=== PATIENT | male | born 1965 | race Caucasian/White ===

== ENCOUNTER 2021-06-27 10:23 | Inpatient (IN) | payer OTHER ==
[2021-06-27 10:56] VITALS: BMI 29.9
[2021-06-27] MEDS ORDERED: MENTHOL/PHENOL 1 EACH UD MM PRN (11:47)
[2021-06-27] MEDS ORDERED: MAGNESIUM CITRATE 300 ML BOTTLE PO PRN (11:47)
[2021-06-27] MEDS ORDERED: MAG HYDROX/AL HYDROX/SIMETH 30 ML UNIT-DOSE CUP PO PRN (11:47)
[2021-06-27] MEDS ORDERED: IBUPROFEN 400 MG TABLET (FP) PO PRN (11:47)
[2021-06-27] MEDS ORDERED: ONDANSETRON *ODT* 4 MG TABLET SL PRN (11:47)
[2021-06-27] MEDS ORDERED: ACETAMINOPHEN 325 MG TABLET (FP) PO PRN (11:47)
[2021-06-27] MEDS ORDERED: BISMUTH SUBSALICYLATE 262 MG/15 ML BTL PO PRN (11:47)
[2021-06-27] MEDS ORDERED: MAGNESIUM HYDROX 2400MG/30ML ORAL SUSPENSION 30 ML CUP PO PRN (11:47)
[2021-06-27] MEDS ORDERED: NICOTINE 10 MG CARTRIDGE (INHALER) IH PRN (11:47)
[2021-06-27] MEDS: amLODIPine BESYLATE 5 MG TABLET (FP) PO SCH (14:05)
[2021-06-27] MEDS: hydrOXYzine PAMOATE 25 MG CAPSULE (FP) PO SCH ×3 (14:05→22:35)
[2021-06-27] MEDS: diazePAM 5 MG TABLET PO PRN (14:17)
[2021-06-27] MEDS: METHOCARBAMOL 500 MG TABLET PO PRN (14:18)
[2021-06-27] MEDS: diazePAM 5 MG TABLET PO SCH ×2 (18:01→22:35)
[2021-06-27] MEDS: ACETAMINOPHEN 325 MG TABLET (FP) PO PRN (18:03)
[2021-06-27] MEDS: THIAMINE HCL 100 MG TABLET (FP) PO SCH (22:35)
[2021-06-27] MEDS: MELATONIN 5 MG TABLETS PO SCH (22:37)
[2021-06-28] MEDS: diazePAM 5 MG TABLET PO SCH ×4 (05:32→22:26)
[2021-06-28] MEDS: hydrOXYzine PAMOATE 25 MG CAPSULE (FP) PO SCH ×5 (05:32→22:25)
[2021-06-28] MEDS: amLODIPine BESYLATE 5 MG TABLET (FP) PO SCH (11:25)
[2021-06-28] MEDS: METHOCARBAMOL 500 MG TABLET PO PRN (11:25)
[2021-06-28] MEDS: PRENATAL VITAMINS W/ FOLIC ACID TABLET (FP) PO SCH (11:25)
[2021-06-28 11:31] LABS: HEMATOCRIT 54.2 % (35.4-49); HEMOGLOBIN 18.8 GM/dL (11.7-16.9); MCH 32.5 pg (25.7-33.7); MCHC 34.7 g/dl (32.0-35.9); MEAN CELL VOLUME 93.7 fl (80-96); MEAN PLT VOLUME 8.8 fl (7.5-11.1); PLATELET COUNT 177 10^3/uL (134-434); RBC 5.79 M/mm3 (4.00-5.60); RDW 13.3 % (11.9-15.9)
[2021-06-28 11:47] LABS: ALBUMIN 4.9 g/dl (3.4-5.0)
[2021-06-28 11:48] LABS: BLOOD UREA NITROGEN 12.5 mg/dL (7-18); CALCIUM 10.1 mg/dL (8.5-10.1)
[2021-06-28 11:50] LABS: CREATININE 1.2 mg/dL (0.55-1.3)
[2021-06-28 11:51] LABS: BILIRUBIN,TOTAL 2.7 mg/dL (0.2-1); TOT PROT 8.5 g/dl (6.4-8.2)
[2021-06-28] MEDS: MELATONIN 5 MG TABLETS PO SCH (22:25)
[2021-06-28] MEDS: THIAMINE HCL 100 MG TABLET (FP) PO SCH (22:25)
[2021-06-29] MEDS: diazePAM 5 MG TABLET PO SCH ×3 (06:18→22:21)
[2021-06-29] MEDS: hydrOXYzine PAMOATE 25 MG CAPSULE (FP) PO SCH ×5 (06:18→22:21)
[2021-06-29] MEDS: PRENATAL VITAMINS W/ FOLIC ACID TABLET (FP) PO SCH (11:00)
[2021-06-29] MEDS: amLODIPine BESYLATE 5 MG TABLET (FP) PO SCH (11:00)
[2021-06-29] MEDS: diazePAM 5 MG TABLET PO PRN (11:00)
[2021-06-29] MEDS: ACETAMINOPHEN 325 MG TABLET (FP) PO PRN (11:02)
[2021-06-29] MEDS ORDERED: BENZOCAINE 20 % GEL TUBE MM PRN (13:23)
[2021-06-29] MEDS ORDERED: POTASSIUM CHLORIDE TABS 20 MEQ TABLET.ER (FP) PO ONE ×3 (14:30→19:30)
[2021-06-29] MEDS: MELATONIN 5 MG TABLETS PO SCH (22:21)
[2021-06-29] MEDS: THIAMINE HCL 100 MG TABLET (FP) PO SCH (22:21)
[2021-06-30] MEDS: hydrOXYzine PAMOATE 25 MG CAPSULE (FP) PO SCH ×5 (06:28→22:25)
[2021-06-30] MEDS: diazePAM 5 MG TABLET PO SCH ×2 (06:28→18:20)
[2021-06-30] MEDS: PRENATAL VITAMINS W/ FOLIC ACID TABLET (FP) PO SCH (10:30)
[2021-06-30] MEDS: amLODIPine BESYLATE 5 MG TABLET (FP) PO SCH (10:31)
[2021-06-30] MEDS ORDERED: POTASSIUM CHLORIDE TABS 20 MEQ TABLET.ER (FP) PO ONE (14:30)
[2021-06-30] MEDS: THIAMINE HCL 100 MG TABLET (FP) PO SCH (22:25)
[2021-06-30] MEDS: MELATONIN 5 MG TABLETS PO SCH (22:25)
[2021-07-01] MEDS: hydrOXYzine PAMOATE 25 MG CAPSULE (FP) PO SCH ×5 (05:31→22:29)
[2021-07-01] MEDS ORDERED: diazePAM 5 MG TABLET PO ONE (06:00)
[2021-07-01] MEDS: METHOCARBAMOL 500 MG TABLET PO PRN (10:15)
[2021-07-01] MEDS: PRENATAL VITAMINS W/ FOLIC ACID TABLET (FP) PO SCH (10:16)
[2021-07-01] MEDS: amLODIPine BESYLATE 5 MG TABLET (FP) PO SCH (10:16)
[2021-07-01 13:33] LABS: ALBUMIN 4.2 g/dl (3.4-5.0); BLOOD UREA NITROGEN 12.5 mg/dL (7-18); CALCIUM 9.8 mg/dL (8.5-10.1)
[2021-07-01 13:37] LABS: CREATININE 0.9 mg/dL (0.55-1.3)
[2021-07-01 13:38] LABS: BILIRUBIN,TOTAL 0.7 mg/dL (0.2-1); TOT PROT 7.5 g/dl (6.4-8.2)
[2021-07-01] MEDS: MELATONIN 5 MG TABLETS PO SCH (22:29)
[2021-07-01] MEDS: THIAMINE HCL 100 MG TABLET (FP) PO SCH (22:29)
[2021-07-02] MEDS: hydrOXYzine PAMOATE 25 MG CAPSULE (FP) PO SCH (06:18)
[2021-07-02 09:06] VITALS: BP 130/84; PULSE 86; TEMP 96.7
== END 2021-07-02 10:00 | disposition home or self-care (01) | DRG 775 ==
LOC: YASAS 10:23 → Y6N 12:04 → Y3N 06-30 19:27
PROVIDERS: ADMIT Allergy & Immunology; ATTEND Allergy & Immunology
PROC: HZ2ZZZZ Detoxification Services for Substance Abuse Treatment (ICD-10-PCS; principal; 2021-06-27)
DX: F10.230 Alcohol dependence with withdrawal, uncomplicated (principal); F12.20 Cannabis dependence, uncomplicated; E87.1 Hypo-osmolality and hyponatremia; E87.6 Hypokalemia; E80.6 Other disorders of bilirubin metabolism; R74.01 Elevation of levels of liver transaminase levels; R73.9 Hyperglycemia, unspecified
CPT/HCPCS: 36415; 71046-TC-FY; 80053; 85027; 86780; C9803; U0003; U0005